=== PATIENT | female | born 2000 | race Caucasian/White ===

== ENCOUNTER 2018-07-08 20:10 | Inpatient (IN) | payer BC ==
[2018-07-08] MEDS ORDERED: Ondansetron 4 MG/2 ML SDV IVPUSH PRN (20:46)
[2018-07-08] MEDS ORDERED: Nalbuphine 20 MG/ML 1 ML Syringe IVPUSH PRN (20:46)
[2018-07-08] MEDS ORDERED: Sodium Chloride 0.9% 10 ML Syringe FLUSH PRN (20:46)
[2018-07-08] MEDS ORDERED: Oxytocin/Lactated Ringers 10 UNIT/1,000 ML BAG IV SCH (21:00)
[2018-07-08] MEDS ORDERED: Lactated Ringers 1,000 ML IV SCH (21:00)
--- NOTE | 2018-07-08 21:57 | PCM.LDHP ---
L&D History of Present Illness - General Date of Service: 07/08/18 Admit Problem/Dx: Patient Status Order with Admit Dx/Problem 07/08/18 20:47 Patient Status [ADT] Routine Admission Diagnosis/Problem Admission Diagnosis/Problem Source of Information: Patient History Limitations: Reports: No Limitations - History of Present Illness Introduction:: Brii Mcallister is a 18 year old female at 39 weeks 5 days (WADE 07/10/2018 ) by LMP consistent with 8 week ultrasound who presents for evaluation of contractions and possible labor. She reports that she has been having contractions since yesterday at around 3 PM and they have been getting progressively worse throughout the day. She reports that the contractions when she came in were about 2-3 minutes apart lasting for about a minute at a time. She states that around 6 or 6:30 PM she had a small gush of clear fluid with some continuous leaking of fluid afterwards. She reports that she is having a small amount of vaginal bleeding. She reports that she is feeling good movement. Timing/Duration: Reports: day(s):, gradual onset, getting worse Location, : Reports: Abdomen, Lower back, Pelvic Quality: Reports: Pressure, Throbbing Severity: Severe Improves with: Reports: None Worsens with: Reports: None Associated Symptoms: Reports: vaginal bleeding, vaginal fluid, mild amount Present Illness Comments:: Brii Mcallister is a 18 year old female at 39 weeks 5 days (EDC 07/10/2018 end (by LMP consistent with 8 week ultrasound. She has had routine care with Dr. Castellon starting at 8 weeks gestational age. This has been overall uncomplicated. labs Blood type: O+ Antibody screen: Negative First trimester hematocrit/hemoglobin: 39.1%/13.8 on 12/27/2017 Platelets: 291 on 12/27/2017 Rubella status: Immune Hepatitis B surface antigen: Negative RPR: Negative HIV: Negative Gonorrhea: Negative Chlamydia: Negative One hour glucose tolerance test: 92 Second trimester hemoglobin: 11.5 on 04/20/2018 Platelets: 289 on 04/20/2018 GBS status: Negative - Related Data Allergies/Adverse Reactions: Allergies Allergy/AdvReac Type Severity Reaction Status Date / Time peppermint Allergy Rash Verified 07/08/18 20:40 Home Medications: Home Meds Vits #93/Iron Fum/FA [ Formula Tablet] 07/08/18 [History] Past Medical History [employer]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: - Past Surgical History Musculoskeletal Surgical History: Reports: Other (See Below) Other Musculoskeletal Surgeries/Procedures:: wrist surgery 2012 Social & Family History - Tobacco Use Smoking Status *Q: Never Smoker - Tobacco Core Measures Tobacco Use/Smoking Within Last 30 Days: No Smokeless Tobacco Use in Last 30 Days: No - Alcohol Use Alcohol Use History: No - Recreational Drug Use Recreational Drug Use: No - Living Situation & Occupation Living situation: Reports: Single, with Significant Other Occupation: Employed H&P Review of Systems - Review of Systems: Review Of Systems: See Below General: Denies: Fever, Chills, Malaise, Weakness HEENT: Denies: Headaches, Sinus Congestion, Sore Throat, Visual Changes Pulmonary: Denies: Shortness of Breath, Wheezing, Cough Cardiovascular: Denies: Chest Pain, Palpitations, Dyspnea on Exertion Gastrointestinal: Denies: Abdominal Pain, Constipation, Diarrhea, Nausea, Vomiting Genitourinary: Denies: Dysuria, Frequency, Burning, Pain, Urgency Musculoskeletal: Reports: Back Pain (and hip pain) Skin: Denies: Rash, Lesions Psychiatric: Denies: Depression, Anxiety Neurological: Denies: Headache L&D Exam - Exam Exam: See Below - Vital Signs Vital Signs: Last Vital Signs Temp 37.3 C 07/08/18 20:33 Pulse 93 07/08/18 20:33 Resp 18 07/08/18 20:33 BP 117/78 07/08/18 20:33 Pulse Ox Weight: 59.285 kg - OB Specific Contraction Duration (sec): 45-75 Contraction Frequency (min): 1-2 Contraction Intensity: Strong Movement: Active Heart Tones: Present Heart Tones per Min: 140 (+15 x 15 accelerations, no decelerations) Heart Rate (FHR) Variability: Moderate (6-25 bmp) Presentation: Vertex Estimated Weight: 6-6.5 lbs by Yasmany - Vela Score Vela Score Cervix Position: Anterior Vela Score Consistency: Soft Vela Score Effacement: >80% (80%) Vela Score Dilation: > 5 cm (7 cm) Vela Score 's Station: -1 ,0 (0) Vela Score Total: 12 - Exam General: Alert, Oriented HEENT: EOMI Neck: Supple, Trachea Midline Lungs: Clear to Auscultation, Normal Respiratory Effort Cardiovascular: Regular Rate, Regular Rhythm GI/Abdominal Exam: Soft, Non-Tender, No Distention, Other (Gravid). No: Guarding, Rigid, Rebound Genitourinary: Normal external exam Back Exam: Normal Inspection Extremities: Normal Inspection, No Pedal Edema Skin: Warm, Dry, Intact Psychiatric: Alert, Normal Affect, Normal Mood - Patient Data Lab Results Last 24 hrs: Laboratory Results - last 24 hr 07/08/18 Range/Units 21:00 WBC 18.70 H (3.98-10.04) K/mm3 RBC 4.19 (3.98-5.22) M/mm3 Hgb 12.3 (11.2-15.7) gm/L Hct 37.4 (34.1-44.9) % MCV 89.3 (79.4-94.8) fl MCH 29.4 (25.6-32.2) pg MCHC 32.9 (32.2-35.5) g/dl RDW Std Deviation 38.8 (36.4-46.3) fL Plt Count 300 (182-369) K/mm3 MPV 10.7 (9.4-12.3) fl Neut % (Auto) 78.5 H (34.0-71.1) % Lymph % (Auto) 10.6 L (19.3-51.7) % [place] % (Auto) 9.6 (4.7-12.5) % Eos % (Auto) 0.4 L (0.7-5.8) Baso % (Auto) 0.2 (0.1-1.2) % Neut # (Auto) 14.66 H (1.56-6.13) K/mm3 Lymph # (Auto) 1.99 (1.18-3.74) K/mm3 [place] # (Auto) 1.80 H (0.24-0.36) K/mm3 Eos # (Auto) 0.08 (0.04-0.36) K/mm3 Baso # (Auto) 0.03 (0.01-0.08) K/mm3 Manual Slide Review Normal smear Result Diagrams: 07/08/18 21:00 - Problem List (1) 39 weeks gestation of SNOMED Code(s): 72100684 ICD Code: Z3A.39 - 39 WEEKS GESTATION OF Status: Acute Current Visit: Yes Problem List Initiated/Reviewed/Updated: Yes Orders Last 24hrs: Active Orders 24 hr Category Date Time Status Patient Status [ADT] Routine ADT 07/08/18 20:47 Active Activity as Tolerated [RC] PFP Care 07/08/18 20:46 Active Communication Order [RC] ASDIRECTED Care 07/08/18 20:46 Active Heart Tones [RC] ASDIRECTED Care 07/08/18 20:47 Active Non Stress Test [RC] PER UNIT ROUTINE Care 07/08/18 20:46 Active Notify Provider [RC] PFP Care 07/08/18 20:46 Active Notify Provider [RC] PRN Care 07/08/18 20:46 Active Peripheral IV Care [RC] . DIRECTED Care 07/08/18 20:47 Active Vital Signs [RC] PER UNIT ROUTINE Care 07/08/18 20:46 Active Regular Diet [DIET] Diet 07/08/18 Breakfast Active RAPID PLASMA REAGIN,RPR [CHEM] Routine Lab 07/08/18 21:00 Received TYPE AND SCREEN [BBK] Stat Lab 07/08/18 21:00 Received Lactated Ringers [Ringers, Lactated] 1,000 ml Med 07/08/18 21:00 Active IV ASDIRECTED Nalbuphine [Nubain] Med 07/08/18 20:46 Active 10 mg IVPUSH Q2H PRN Ondansetron [Zofran] Med 07/08/18 20:46 Active 4 mg IVPUSH Q4H PRN Oxytocin/Lactated Ringers [Pitocin in LR 10 Units/1,000 Med 07/08/18 21:00 Active ML] 10 unit in 1,000 ml IV ASDIRECTED Sodium Chloride 0.9% [Saline Flush] Med 07/08/18 20:46 Active 10 ml FLUSH ASDIRECTED PRN Electronic Heart Tones Ext w TOCO [WOMSER] Oth 07/08/18 20:46 Ordered Routine Electronic Heart Tones Internal [WOMSER] Per Unit Oth 07/08/18 20:46 Ordered Routine Peripheral IV Insertion Adult [OM.PC] Routine Oth 07/08/18 20:46 Ordered Resuscitation Status Routine Resus Stat 07/08/18 20:46 Ordered Medication Orders Lactated Ringer's (Ringers, Lactated) 1,000 mls @ 100 mls/hr IV ASDIRECTED [facility] Oxytocin/Lactated Ringer's (Pitocin In Lr 10 Units/1,000 Ml) 10 unit in 1,000 mls @ 500 mls/hr IV ASDIRECTED MATEO Stop: 07/08/18 22:59 Nalbuphine HCl (Nubain) 10 mg IVPUSH Q2H PRN PRN Reason: pain Ondansetron HCl (Zofran) 4 mg IVPUSH Q4H PRN PRN Reason: Nausea/Vomiting Sodium Chloride (Saline Flush) 10 ml FLUSH ASDIRECTED PRN PRN Reason: Keep Vein Open Assessment/Plan Comment:: Refer to observation for spontaneous labor with cervical dilation of 5 cm on initial exam by nurse. On my exam she was 7 cm dilated and artificial rupture membranes performed with return of clear fluid. Mother and tolerated procedure without complications. Continuous monitoring Continue IV and have Lactated Ringer's at 125 ml/hr May have small amounts of regular diet Activity as tolerated May have epidural as desired Plans to breast-feed after delivery Anticipate vaginal delivery unless otherwise indicated Crescencio Yeung M.D. 10:08 PM 07/08/2018
[2018-07-08] MEDS ORDERED: Lidocaine 1% 50 ML MDV INJECT ONE (22:58)
[2018-07-08] MEDS ORDERED: Lidocaine 1% 50 ML MDV ONE (22:59)
--- NOTE | 2018-07-09 03:17 | PCM.DEL ---
L & D Note - General Info Date of Service: 07/09/18 Mother's Due Date: 07/10/18 - Delivery Note Labor: Spontaneous, Augmented by ARM Cervical Ripening Method: Oxytocin Delivery Outcome: Livebirth Infant Delivery Method: Spontaneous Vaginal Delivery-Single Presentation: Direct Occiput Posterior Nuchal Cord: None Prep: Povidone-Iodine (Betadine Anesthesia Type: Local Anesthetic: Lidocaine (Xylocaine) 1% Plain Local Anesthetic Volume: Other (8 mL) Amniotic Fluid Description: Clear Episiotomy Type: None Laceration: 2nd Degree, Perineal (midline, repaired with 3-0 Vicryl) Suture type: Vicryl Suture size: 3-0 Placenta: Intact, Spontaneous Cord: 3 Vessels Estimated Blood Loss: 350 Resuscitation Needed: No : Bulb Syringe, Stimulated, Warmed, [place] Used Provider: Crescencio Yeung Score 1 min: 8 Score 5 min: 9 Second Stage Interventions: Reports: Pushing Effectively, Pushing, Pulls Own Legs Back Delivery Comments (Free Text/Narrative):: Stage I: Brii Mcallister was admitted for spontaneous labor. On admission her cervix was dilated to 5 cm. She was GBS negative. She progressed to 7 cm and had artificial rupture membranes with clear fluid. She continued to labor on her own and progressed to complete and pushing. Stage II: On 07/09/2018 she had a normal vaginal delivery of a live male infant at 0238. Apgars of 8 & 9. Weight of 3280 g (7 lbs 3.7 oz). Length of 20.5 inches. There was no nuchal cord. Infant was delivered in direct OP position. The cord was doubly clamped and cut by myself. Infant was placed on mother's abdomen and taken to the warmer for evaluation per mother's request. Stage III: She had a spontaneous delivery of an intact placenta in Vaishnavi presentation. Three vessel cord. She was given pitocin and fundal massage. She had a second-degree midline perineal laceration that was repaired in normal fashion using 3-0 Vicryl. Mom and baby were stable to recovery. EBL of 350 mL. Crescencio Yeung MD 3:09 AM 07/09/2018 - General Info Date of Service: 07/09/18 - Patient Data Vitals - Most Recent: Last Vital Signs Temp 37.3 C 07/08/18 20:33 Pulse 93 07/08/18 20:33 Resp 18 07/08/18 20:33 BP 117/78 07/08/18 20:33 Pulse Ox Weight - Most Recent: 59.285 kg Lab Results Last 24 Hours: Laboratory Results - last 24 hr 07/08/18 07/08/18 Range/Units 21:00 21:00 WBC 18.70 H (3.98-10.04) K/mm3 RBC 4.19 (3.98-5.22) M/mm3 Hgb 12.3 (11.2-15.7) gm/L Hct 37.4 (34.1-44.9) % MCV 89.3 (79.4-94.8) fl MCH 29.4 (25.6-32.2) pg MCHC 32.9 (32.2-35.5) g/dl RDW Std Deviation 38.8 (36.4-46.3) fL Plt Count 300 (182-369) K/mm3 MPV 10.7 (9.4-12.3) fl Neut % (Auto) 78.5 H (34.0-71.1) % Lymph % (Auto) 10.6 L (19.3-51.7) % [place] % (Auto) 9.6 (4.7-12.5) % Eos % (Auto) 0.4 L (0.7-5.8) Baso % (Auto) 0.2 (0.1-1.2) % Neut # (Auto) 14.66 H (1.56-6.13) K/mm3 Lymph # (Auto) 1.99 (1.18-3.74) K/mm3 [place] # (Auto) 1.80 H (0.24-0.36) K/mm3 Eos # (Auto) 0.08 (0.04-0.36) K/mm3 Baso # (Auto) 0.03 (0.01-0.08) K/mm3 Manual Slide Review Normal smear Blood Type O POSITIVE Gel Antibody Screen Negative Med Orders - Current: Current Medications Lactated Ringer's (Ringers, Lactated) 1,000 mls @ 100 mls/hr IV ASDIRECTED MATEO Nalbuphine HCl (Nubain) 10 mg IVPUSH Q2H PRN PRN Reason: pain Ondansetron HCl (Zofran) 4 mg IVPUSH Q4H PRN PRN Reason: Nausea/Vomiting Sodium Chloride (Saline Flush) 10 ml FLUSH ASDIRECTED PRN PRN Reason: Keep Vein Open Discontinued Medications Oxytocin/Lactated Ringer's (Pitocin In Lr 10 Units/1,000 Ml) 10 unit in 1,000 mls @ 500 mls/hr IV ASDIRECTED MATEO Stop: 07/08/18 22:59 Last Admin: 07/09/18 02:41 Dose: 500 mls/hr Lidocaine HCl (Xylocaine 1%) 10 ml INJECT ONETIME ONE Stop: 07/08/18 22:59 Last Admin: 07/09/18 02:54 Dose: 10 ml Lidocaine HCl (Xylocaine 1%) Confirm Administered Dose 50 ml .ROUTE .STK-MED ONE Stop: 07/08/18 23:00 Last Admin: 07/08/18 23:17 Dose: Not Given - Problem List & Annotations (1) 39 weeks gestation of SNOMED Code(s): 13724268 Code(s): Z3A.39 - 39 WEEKS GESTATION OF Status: Acute Current Visit: Yes (2) Vaginal delivery SNOMED Code(s): 104249019 Code(s): O80 - ENCOUNTER FOR FULL-TERM UNCOMPLICATED DELIVERY Status: Acute Current Visit: Yes (3) Second degree perineal laceration during delivery SNOMED Code(s): 0934967 Code(s): O70.1 - SECOND DEGREE PERINEAL LACERATION DURING DELIVERY Status: Acute Current Visit: Yes - Problem List Review Problem List Initiated/Reviewed/Updated: Yes - My Orders Last 24 Hours: My Active Orders 07/08/18 20:46 Activity as Tolerated [RC] PFP Communication Order [RC] ASDIRECTED Non Stress Test [RC] PER UNIT ROUTINE Notify Provider [RC] PFP Notify Provider [RC] PRN Vital Signs [RC] PER UNIT ROUTINE Nalbuphine [Nubain] 10 mg IVPUSH Q2H PRN Ondansetron [Zofran] 4 mg IVPUSH Q4H PRN Sodium Chloride 0.9% [Saline Flush] 10 ml FLUSH ASDIRECTED PRN Electronic Heart Tones Ext w TOCO [WOMSER] Routine Electronic Heart Tones Internal [WOMSER] Per Unit Routine Peripheral IV Insertion Adult [OM.PC] Routine Resuscitation Status Routine 07/08/18 20:47 Patient Status [ADT] Routine Heart Tones [RC] ASDIRECTED Peripheral IV Care [RC] . DIRECTED 07/08/18 21:00 RAPID PLASMA REAGIN,RPR [CHEM] Routine Lactated Ringers [Ringers, Lactated] 1,000 ml IV ASDIRECTED 07/08/18 22:17 PATIENT RETYPE [BBK] Routine 07/08/18 Breakfast Regular Diet [DIET] 07/09/18 03:10 Patient Status Manage Transfer [TRANSFER] Routine - Plan Plan:: Admit to inpatient following normal spontaneous vaginal delivery Continue Pitocin per unit protocol following delivery of placenta and lactated Ringer's until tolerating regular diet Regular diet Vitals per unit routine Ibuprofen and Tylenol for pain control Assist with breast-feeding as needed Continue to monitor lochia Anticipate discharge home on day #1 or #2 depending on status Crescencio Yeung MD 3:09 AM 07/09/2018
[2018-07-09] MEDS ORDERED: Lanolin 100% Cream 7 GM Tube TOP PRN (03:19)
[2018-07-09] MEDS ORDERED: Witch Hazel Medicated Pads 40/Jar TOP PRN (03:19)
[2018-07-09] MEDS ORDERED: Oxytocin/Lactated Ringers 10 UNIT/1,000 ML BAG IV SCH (03:19)
[2018-07-09] MEDS ORDERED: Docusate Sodium 100 MG Cap PO PRN (03:19)
[2018-07-09] MEDS ORDERED: Benzocaine/Menthol 20%-0.5% Spray 56 GM Canister TOP PRN (03:19)
[2018-07-09] MEDS ORDERED: Ibuprofen 600 MG Tab PO PRN (03:19)
[2018-07-09] MEDS ORDERED: Acetaminophen 325 MG Tab PO PRN (03:19)
[2018-07-09] MEDS ORDERED: Hydrocortisone Acetate 25 MG Supp RECTAL PRN (03:19)
[2018-07-09] MEDS: Prenatal Multivitamin with Calcium/Folic Acid/Iron Tab PO SCH (11:35)
--- NOTE | 2018-07-10 08:57 | PCM.SN ---
- Free Text/Narrative Note: Post Progress Note PPD # 1 Subjective: Doing well overall. Ambulating without difficulty. Lochia minimal. Voiding without difficulty. Tolerating regular diet without nausea or vomiting. Pain minimal and able to be controlled with oral medications. Breast-feeding with some difficulty but working with the nurses on feeding baby. Objective: Vitals: Vital Signs - 24 hr 07/09/18 07/09/18 13:49 21:43 Temperature 36.4 C 36.6 C Pulse, 103 H 104 H Peripheral Respiratory 14 15 Rate Blood Pressure 117/61 99/59 L O2 Sat by Pulse 98 98 Oximetry Physical Exam General: Alert and oriented, no acute distress Lungs: Clear to auscultation bilaterally Heart: Regular rate and rhythm Abdomen: Soft, minimal appropriate tenderness, non-distended, fundus midline, nontender, and at the umbilicus Extremities: No edema ASSESSMENT: 18-year-old female s/p normal vaginal delivery PPD #1 PLAN: Doing well Breast-feeding with minimal difficulty. Assist as needed Lochia minimal. Continue to monitor for appropriate lochia. Continue routine care Anticipate discharge home today Crescencio Yeung MD 8:56 AM 07/10/2018
--- NOTE | 2018-07-10 09:00 | PCM.DCSUM1 ---
Discharge Summary - Hospital Course Free Text/Narrative:: - Delivery Note Labor: Spontaneous, Augmented by ARM Cervical Ripening Method: Oxytocin Delivery Outcome: Livebirth Delivery Method: Spontaneous Vaginal Delivery-Single Presentation: Direct Occiput Posterior Nuchal Cord: None Prep: Povidone-Iodine (Betadine Anesthesia Type: Local Anesthetic: Lidocaine (Xylocaine) 1% Plain Local Anesthetic Volume: Other (8 mL) Amniotic Fluid Description: Clear Episiotomy Type: None Laceration: 2nd Degree, Perineal (midline, repaired with 3-0 Vicryl) Suture type: Vicryl Suture size: 3-0 Placenta: Intact, Spontaneous Cord: 3 Vessels Estimated Blood Loss: 350 Resuscitation Needed: No : Bulb Syringe, Stimulated, Warmed, [place] Used Provider: Crescencio Yeung Score 1 min: 8 Score 5 min: 9 Second Stage Interventions: Reports: Pushing Effectively, Pushing, Pulls Own Legs Back Delivery Comments (Free Text/Narrative):: Stage I: Brii Mcallister was admitted for spontaneous labor. On admission her cervix was dilated to 5 cm. She was GBS negative. She progressed to 7 cm and had artificial rupture membranes with clear fluid. She continued to labor on her own and progressed to complete and pushing. Stage II: On 07/09/2018 she had a normal vaginal delivery of a live male at 0238. Apgars of 8 & 9. Weight of 3280 g (7 lbs 3.7 oz). Length of 20.5 inches. There was no nuchal cord. Infant was delivered in direct OP position. The cord was doubly clamped and cut by myself. Infant was placed on mother's abdomen and taken to the warmer for evaluation per mother's request. Stage III: She had a spontaneous delivery of an intact placenta in Vaishnavi presentation. Three vessel cord. She was given pitocin and fundal massage. She had a second-degree midline perineal laceration that was repaired in normal fashion using 3-0 Vicryl. Mom and baby were stable to recovery. EBL of 350 mL. HPI Initial Comments: - Delivery Note Labor: Spontaneous, Augmented by ARM Cervical Ripening Method: Oxytocin Delivery Outcome: Livebirth Delivery Method: Spontaneous Vaginal Delivery-Single Presentation: Direct Occiput Posterior Nuchal Cord: None Prep: Povidone-Iodine (Betadine Anesthesia Type: Local Anesthetic: Lidocaine (Xylocaine) 1% Plain Local Anesthetic Volume: Other (8 mL) Amniotic Fluid Description: Clear Episiotomy Type: None Laceration: 2nd Degree, Perineal (midline, repaired with 3-0 Vicryl) Suture type: Vicryl Suture size: 3-0 Placenta: Intact, Spontaneous Cord: 3 Vessels Estimated Blood Loss: 350 Resuscitation Needed: No [place]: Bulb Syringe, Stimulated, Warmed, [place] Used Provider: Crescencio Yeung Score 1 min: 8 Score 5 min: 9 Second Stage Interventions: Reports: Pushing Effectively, Pushing, Pulls Own Legs Back Delivery Comments (Free Text/Narrative):: Stage I: Brii Mcallister was admitted for spontaneous labor. On admission her cervix was dilated to 5 cm. She was GBS negative. She progressed to 7 cm and had artificial rupture membranes with clear fluid. She continued to labor on her own and progressed to complete and pushing. Stage II: On 07/09/2018 she had a normal vaginal delivery of a live male infant at 0238. Apgars of 8 & 9. Weight of 3280 g (7 lbs 3.7 oz). Length of 20.5 inches. There was no nuchal cord. was delivered in direct OP position. The cord was doubly clamped and cut by myself. Infant was placed on mother's abdomen and taken to the warmer for evaluation per mother's request. Stage III: She had a spontaneous delivery of an intact placenta in Vaishnavi presentation. Three vessel cord. She was given pitocin and fundal massage. She had a second-degree midline perineal laceration that was repaired in normal fashion using 3-0 Vicryl. Mom and baby were stable to recovery. EBL of 350 mL. Brief History: - Delivery Note. Labor: Spontaneous, Augmented by ARM. Cervical Ripening Method: Oxytocin. Delivery Outcome: Livebirth. Infant Delivery Method: Spontaneous Vaginal Delivery-Single. Presentation: Direct Occiput Posterior. Nuchal Cord: None. Prep: Povidone-Iodine (Betadine. Anesthesia Type: Local. Anesthetic: Lidocaine (Xylocaine) 1% Plain. Local Anesthetic Volume: Other (8 mL). Amniotic Fluid Description: Clear. Episiotomy Type: None. Laceration: 2nd Degree, Perineal (midline, repaired with 3-0 Vicryl). Suture type: Vicryl. Suture size: 3-0. Placenta: Intact, Spontaneous. Cord: 3 Vessels. Estimated Blood Loss: 350. Resuscitation Needed : No. [place]: Bulb Syringe, Stimulated, Warmed, [place] Used. Provider: Crescencio Yeung. Score 1 min: 8. Score 5 min: 9. Second Stage Interventions: Reports: Pushing Effectively, Pushing, Pulls Own Legs Back. Delivery Comments (Free Text/Narrative):: Stage I: Brii Mcallister was admitted for spontaneous labor. On admission her cervix was dilated to 5 cm. She was GBS negative. She progressed to 7 cm and had artificial rupture membranes with clear fluid. She continued to labor on her own and progressed to complete and pushing. Stage II: On 07/09/2018 she had a normal vaginal delivery of a live male infant at 0238. Apgars of 8 & 9. Weight of 3280 g (7 lbs 3.7 oz). Length of 20.5 inches. There was no nuchal cord. Infant was delivered in direct OP position. The cord was doubly clamped and cut by myself. was placed on mother's abdomen and taken to the warmer for evaluation per mother's request. Stage III: She had a spontaneous delivery of an intact placenta in Vaishnavi presentation. Three vessel cord. She was given pitocin and fundal massage. She had a second-degree midline perineal laceration that was repaired in normal fashion using 3-0 Vicryl. Mom and baby were stable to recovery. EBL of 350 mL. - Discharge Data Discharge Disposition: Home, Self-Care 01 Condition: Good - Discharge Diagnosis/Problem(s) (1) 39 weeks gestation of SNOMED Code(s): 31235306 ICD Code: Z3A.39 - 39 WEEKS GESTATION OF Status: Acute Current Visit: Yes (2) Vaginal delivery SNOMED Code(s): 875187589 ICD Code: O80 - ENCOUNTER FOR FULL-TERM UNCOMPLICATED DELIVERY Status: Acute Current Visit: Yes (3) Second degree perineal laceration during delivery SNOMED Code(s): 1191187 ICD Code: O70.1 - SECOND DEGREE PERINEAL LACERATION DURING DELIVERY Status : Acute Current Visit: Yes - Discharge Plan Home Medications: Home Meds Vits #93/Iron Fum/FA [ Formula Tablet] 05/24/19 [History] - Patient Data Vitals - Most Recent: Last Vital Signs Temp 36.6 C 07/09/18 21:43 Pulse 104 H 07/09/18 21:43 Resp 15 07/09/18 21:43 BP 99/59 L 07/09/18 21:43 Pulse Ox 98 07/09/18 21:43 Weight - Most Recent: 59.285 kg I&O - Last 24 hours: Intake & Output 07/09/18 07/10/18 07/10/18 22:59 06:59 14:59 Intake Total 320 Balance 320 Lab Results - Last 24 hrs: Laboratory Results - last 24 hr 07/09/18 07/09/18 Range/Units 09:50 09:50 WBC 31.32 H (3.98-10.04) K/mm3 RBC 3.60 L (3.98-5.22) M/mm3 Hgb 10.8 L D (11.2-15.7) gm/L Hct 31.6 L (34.1-44.9) % MCV 87.8 (79.4-94.8) fl MCH 30.0 (25.6-32.2) pg MCHC 34.2 (32.2-35.5) g/dl RDW Std Deviation 37.7 (36.4-46.3) fL Plt Count 344 (182-369) K/mm3 MPV 10.5 (9.4-12.3) fl Neut % (Auto) Cancelled Lymph % (Auto) Cancelled [place] % (Auto) Cancelled Eos % (Auto) Cancelled Baso % (Auto) Cancelled Neut # (Auto) Cancelled Lymph # (Auto) Cancelled [place] # (Auto) Cancelled Eos # (Auto) Cancelled Baso # (Auto) Cancelled Neutrophils % (Manual) 87 H (40-60) % Band Neutrophils % 0 (0-10) % Lymphocytes % (Manual) 3 L (20-40) % Atypical Lymphs % 0 % Monocytes % (Manual) 10 (2-10) % Eosinophils % (Manual) 0 L (0.7-5.8) % Basophils % (Manual) 0 L (0.1-1.2) Manual Slide Review Cancelled Platelet Estimate Adequate Hypochromasia 1+ slight Microcytosis 1+ slight RBC Morph Comment Abnormal Sodium 133 L (136-145) mEq/L Potassium 3.6 (3.5-5.1) mEq/L Chloride 101 (98-107) mEq/L Carbon Dioxide 17 L (21-32) mEq/L Anion Gap 18.6 H (5-15) BUN 5 L (7-18) mg/dL Creatinine 0.9 (0.55-1.02) mg/dL Est Cr Clr Drug Dosing 86.10 mL/min Estimated GFR (MDRD) > 60 (>60) mL/min BUN/Creatinine Ratio 5.6 L (14-18) Glucose 133 H (74-106) mg/dL Calcium 8.9 (8.5-10.1) mg/dL Med Orders - Current: Current Medications Acetaminophen (Tylenol) 650 mg PO Q6H PRN PRN Reason: mild pain or fever Benzocaine/Menthol (Dermoplast Pain Relief [place]) 0 gm TOP ASDIRECTED PRN PRN Reason: Perineal Comfort Measure Last Admin: 07/09/18 04:13 Dose: 1 applic Docusate Sodium (Colace) 100 mg PO BID PRN PRN Reason: Constipation Emollient Ointment (Lansinoh Hpa) 0 gm TOP ASDIRECTED PRN PRN Reason: Sore Nipples Hydrocortisone Acetate (Anucort-Hc) 25 mg RECTAL BID PRN PRN Reason: Hemorrhoid pain Oxytocin/Lactated Ringer's (Pitocin In Lr 10 Units/1,000 Ml) 10 unit in 1,000 mls @ 100 mls/hr IV TITRATE MATEO; Protocol Ibuprofen (Motrin) 600 mg PO Q6H PRN PRN Reason: Mild pain or fever Last Admin: 07/09/18 04:15 Dose: 600 mg Prenat Multivit/Industrial Gas Fitter Helper/Iron/Folic Ac ( Plus Iron) 1 each PO DAILY MATEO Last Admin: 07/09/18 11:35 Dose: 1 each [place] (Tucks) 1 pad TOP ASDIRECTED PRN PRN Reason: Perineal Comfort Measure Last Admin: 07/09/18 04:14 Dose: 1 applic Discontinued Medications Lactated Ringer's (Ringers, Lactated) 1,000 mls @ 100 mls/hr IV ASDIRECTED MATEO Oxytocin/Lactated Ringer's (Pitocin In Lr 10 Units/1,000 Ml) 10 unit in 1,000 mls @ 500 mls/hr IV ASDIRECTED MATEO Stop: 07/08/18 22:59 Last Admin: 07/09/18 02:41 Dose: 500 mls/hr Lidocaine HCl (Xylocaine 1%) 10 ml INJECT ONETIME ONE Stop: 07/08/18 22:59 Last Admin: 07/09/18 02:54 Dose: 10 ml Lidocaine HCl (Xylocaine 1%) Confirm Administered Dose 50 ml .ROUTE .RUST-MED ONE Stop: 07/08/18 23:00 Last Admin: 07/08/18 23:17 Dose: Not Given Nalbuphine HCl (Nubain) 10 mg IVPUSH Q2H PRN PRN Reason: pain Ondansetron HCl (Zofran) 4 mg IVPUSH Q4H PRN PRN Reason: Nausea/Vomiting Sodium Chloride (Saline Flush) 10 ml FLUSH ASDIRECTED PRN PRN Reason: Keep Vein Open
--- NOTE | 2018-07-10 09:05 | PCM.DCSUM1 ---
Discharge Summary - Hospital Course Free Text/Narrative:: - Delivery Note Labor: Spontaneous, Augmented by ARM Cervical Ripening Method: Oxytocin Delivery Outcome: Livebirth Delivery Method: Spontaneous Vaginal Delivery-Single Presentation: Direct Occiput Posterior Nuchal Cord: None Prep: Povidone-Iodine (Betadine Anesthesia Type: Local Anesthetic: Lidocaine (Xylocaine) 1% Plain Local Anesthetic Volume: Other (8 mL) Amniotic Fluid Description: Clear Episiotomy Type: None Laceration: 2nd Degree, Perineal (midline, repaired with 3-0 Vicryl) Suture type: Vicryl Suture size: 3-0 Placenta: Intact, Spontaneous Cord: 3 Vessels Estimated Blood Loss: 350 Resuscitation Needed: No : Bulb Syringe, Stimulated, Warmed, [place] Used Provider: Crescencio Yeung Score 1 min: 8 Score 5 min: 9 Second Stage Interventions: Reports: Pushing Effectively, Pushing, Pulls Own Legs Back Delivery Comments (Free Text/Narrative):: Stage I: Brii Mcallister was admitted for spontaneous labor. On admission her cervix was dilated to 5 cm. She was GBS negative. She progressed to 7 cm and had artificial rupture membranes with clear fluid. She continued to labor on her own and progressed to complete and pushing. Stage II: On 07/09/2018 she had a normal vaginal delivery of a live male at 0238. Apgars of 8 & 9. Weight of 3280 g (7 lbs 3.7 oz). Length of 20.5 inches. There was no nuchal cord. Infant was delivered in direct OP position. The cord was doubly clamped and cut by myself. Infant was placed on mother's abdomen and taken to the warmer for evaluation per mother's request. Stage III: She had a spontaneous delivery of an intact placenta in Vaishnavi presentation. Three vessel cord. She was given pitocin and fundal massage. She had a second-degree midline perineal laceration that was repaired in normal fashion using 3-0 Vicryl. Mom and baby were stable to recovery. EBL of 350 mL. HPI Initial Comments: - Delivery Note Labor: Spontaneous, Augmented by ARM Cervical Ripening Method: Oxytocin Delivery Outcome: Livebirth Delivery Method: Spontaneous Vaginal Delivery-Single Presentation: Direct Occiput Posterior Nuchal Cord: None Prep: Povidone-Iodine (Betadine Anesthesia Type: Local Anesthetic: Lidocaine (Xylocaine) 1% Plain Local Anesthetic Volume: Other (8 mL) Amniotic Fluid Description: Clear Episiotomy Type: None Laceration: 2nd Degree, Perineal (midline, repaired with 3-0 Vicryl) Suture type: Vicryl Suture size: 3-0 Placenta: Intact, Spontaneous Cord: 3 Vessels Estimated Blood Loss: 350 Resuscitation Needed: No [place]: Bulb Syringe, Stimulated, Warmed, [place] Used Provider: Crescencio Yeung Score 1 min: 8 Score 5 min: 9 Second Stage Interventions: Reports: Pushing Effectively, Pushing, Pulls Own Legs Back Delivery Comments (Free Text/Narrative):: Stage I: Brii Mcallister was admitted for spontaneous labor. On admission her cervix was dilated to 5 cm. She was GBS negative. She progressed to 7 cm and had artificial rupture membranes with clear fluid. She continued to labor on her own and progressed to complete and pushing. Stage II: On 07/09/2018 she had a normal vaginal delivery of a live male infant at 0238. Apgars of 8 & 9. Weight of 3280 g (7 lbs 3.7 oz). Length of 20.5 inches. There was no nuchal cord. was delivered in direct OP position. The cord was doubly clamped and cut by myself. Infant was placed on mother's abdomen and taken to the warmer for evaluation per mother's request. Stage III: She had a spontaneous delivery of an intact placenta in Vaishnavi presentation. Three vessel cord. She was given pitocin and fundal massage. She had a second-degree midline perineal laceration that was repaired in normal fashion using 3-0 Vicryl. Mom and baby were stable to recovery. EBL of 350 mL. Brief History: - Delivery Note. Labor: Spontaneous, Augmented by ARM. Cervical Ripening Method: Oxytocin. Delivery Outcome: Livebirth. Infant Delivery Method: Spontaneous Vaginal Delivery-Single. Presentation: Direct Occiput Posterior. Nuchal Cord: None. Prep: Povidone-Iodine (Betadine. Anesthesia Type: Local. Anesthetic: Lidocaine (Xylocaine) 1% Plain. Local Anesthetic Volume: Other (8 mL). Amniotic Fluid Description: Clear. Episiotomy Type: None. Laceration: 2nd Degree, Perineal (midline, repaired with 3-0 Vicryl). Suture type: Vicryl. Suture size: 3-0. Placenta: Intact, Spontaneous. Cord: 3 Vessels. Estimated Blood Loss: 350. Resuscitation Needed : No. [place]: Bulb Syringe, Stimulated, Warmed, [place] Used. Provider: Crescencio Yeung. Score 1 min: 8. Score 5 min: 9. Second Stage Interventions: Reports: Pushing Effectively, Pushing, Pulls Own Legs Back. Delivery Comments (Free Text/Narrative):: Stage I: Brii Mcallister was admitted for spontaneous labor. On admission her cervix was dilated to 5 cm. She was GBS negative. She progressed to 7 cm and had artificial rupture membranes with clear fluid. She continued to labor on her own and progressed to complete and pushing. Stage II: On 07/09/2018 she had a normal vaginal delivery of a live male infant at 0238. Apgars of 8 & 9. Weight of 3280 g (7 lbs 3.7 oz). Length of 20.5 inches. There was no nuchal cord. Infant was delivered in direct OP position. The cord was doubly clamped and cut by myself. was placed on mother's abdomen and taken to the warmer for evaluation per mother's request. Stage III: She had a spontaneous delivery of an intact placenta in Vaishnavi presentation. Three vessel cord. She was given pitocin and fundal massage. She had a second-degree midline perineal laceration that was repaired in normal fashion using 3-0 Vicryl. Mom and baby were stable to recovery. EBL of 350 mL. Diagnosis: Stroke: No - Discharge Data Discharge Date: 07/10/18 Discharge Disposition: Home, Self-Care 01 Condition: Good - Discharge Diagnosis/Problem(s) (1) 39 weeks gestation of SNOMED Code(s): 84314247 ICD Code: Z3A.39 - 39 WEEKS GESTATION OF Status: Acute Current Visit: Yes (2) Vaginal delivery SNOMED Code(s): 585349623 ICD Code: O80 - ENCOUNTER FOR FULL-TERM UNCOMPLICATED DELIVERY Status: Acute Current Visit: Yes (3) Second degree perineal laceration during delivery SNOMED Code(s): 1146612 ICD Code: O70.1 - SECOND DEGREE PERINEAL LACERATION DURING DELIVERY Status : Acute Current Visit: Yes - Patient Summary/Data Complications: None Consults: None Hospital Course: Brii Mcallister was admitted for spontaneous labor. On admission her cervix was dilated to 5 cm. She was GBS negative. She had artificial rupture of membranes with clear fluid. She progressed to complete and began pushing. On she had a normal vaginal delivery of a live male at 0238. Apgars of 8 and 9. Weight of 3280 g (7 pounds 3.7 ounces). Her course was uneventful. Her pain was well controlled and she had minimal lochia. She was ambulating, tolerating a regular diet and voiding normally. She was breast-feeding with some difficulty but was working with the nurses on feeding . She was afebrile and her hematocrit was 31.6 on day #0 approximately 6 hours after delivery. She desired to be discharged home on the morning of PPD #1. Her blood type is O+. - Patient Instructions Diet: Regular Diet as Tolerated Activity: Apply Ice, As Tolerated Activity, Other: Nothing in the vagina for 6 weeks Driving: May Drive Today Showering/Bathing: May Shower Notify Provider of: Fever, Increased Pain, Swelling and Redness, Drainage, Nausea and/or Vomiting Other/Special Instructions: Please contact your physician's office if you have heavy vaginal bleeding enough to soak a pad in less than an hour for several hours. Monitor for any signs of an infection in the breasts with severe pain or redness of the breast. - Discharge Plan *PRESCRIPTION DRUG MONITORING PROGRAM REVIEWED*: Not Applicable *COPY OF PRESCRIPTION DRUG MONITORING REPORT IN PATIENT ALBERTO: Not Applicable Home Medications: Home Meds Vits #93/Iron Fum/FA [ Formula Tablet] 07/08/18 [History] Acetaminophen [Tylenol] 650 mg PO Q6H PRN tablet 07/10/18 [Rx] Benzocaine/Menthol [Dermoplast Pain Relief [place]] 1 spray TOP ASDIRECTED PRN canister 07/10/18 [Rx] Docusate Sodium [Colace] 100 mg PO BID PRN cap 07/10/18 [Rx] Hydrocortisone Acetate [Anucort-HC] 25 mg RECTAL BID PRN supp 07/10/18 [Rx] Ibuprofen [Motrin] 600 mg PO Q6H PRN tablet 07/10/18 [Rx] Lanolin [Lansinoh HPA] 1 applic TOP ASDIRECTED PRN tube 07/10/18 [Rx] [place] [Tucks] 1 pad TOP ASDIRECTED PRN pad 07/10/18 [Rx] Patient Handouts: Vaginal Delivery, Care After, Care of a Perineal Tear Referrals: Carmen Castellon MD [Physician] - (Follow-up in 3-6 weeks for routine visit or earlier as needed.) - Discharge Summary/Plan Comment DC Time >30 min.: No - Patient Data Vitals - Most Recent: Last Vital Signs Temp 36.6 C 07/09/18 21:43 Pulse 104 H 07/09/18 21:43 Resp 15 07/09/18 21:43 BP 99/59 L 07/09/18 21:43 Pulse Ox 98 07/09/18 21:43 Weight - Most Recent: 59.285 kg I&O - Last 24 hours: Intake & Output 07/09/18 07/10/18 07/10/18 22:59 06:59 14:59 Intake Total 320 Balance 320 Lab Results - Last 24 hrs: Laboratory Results - last 24 hr 07/09/18 07/09/18 Range/Units 09:50 09:50 WBC 31.32 H (3.98-10.04) K/mm3 RBC 3.60 L (3.98-5.22) M/mm3 Hgb 10.8 L D (11.2-15.7) gm/L Hct 31.6 L (34.1-44.9) % MCV 87.8 (79.4-94.8) fl MCH 30.0 (25.6-32.2) pg MCHC 34.2 (32.2-35.5) g/dl RDW Std Deviation 37.7 (36.4-46.3) fL Plt Count 344 (182-369) K/mm3 MPV 10.5 (9.4-12.3) fl Neut % (Auto) Cancelled Lymph % (Auto) Cancelled [place] % (Auto) Cancelled Eos % (Auto) Cancelled Baso % (Auto) Cancelled Neut # (Auto) Cancelled Lymph # (Auto) Cancelled [place] # (Auto) Cancelled Eos # (Auto) Cancelled Baso # (Auto) Cancelled Neutrophils % (Manual) 87 H (40-60) % Band Neutrophils % 0 (0-10) % Lymphocytes % (Manual) 3 L (20-40) % Atypical Lymphs % 0 % Monocytes % (Manual) 10 (2-10) % Eosinophils % (Manual) 0 L (0.7-5.8) % Basophils % (Manual) 0 L (0.1-1.2) Manual Slide Review Cancelled Platelet Estimate Adequate Hypochromasia 1+ slight Microcytosis 1+ slight RBC Morph Comment Abnormal Sodium 133 L (136-145) mEq/L Potassium 3.6 (3.5-5.1) mEq/L Chloride 101 (98-107) mEq/L Carbon Dioxide 17 L (21-32) mEq/L Anion Gap 18.6 H (5-15) BUN 5 L (7-18) mg/dL Creatinine 0.9 (0.55-1.02) mg/dL Est Cr Clr Drug Dosing 86.10 mL/min Estimated GFR (MDRD) > 60 (>60) mL/min BUN/Creatinine Ratio 5.6 L (14-18) Glucose 133 H (74-106) mg/dL Calcium 8.9 (8.5-10.1) mg/dL Med Orders - Current: Current Medications Acetaminophen (Tylenol) 650 mg PO Q6H PRN PRN Reason: mild pain or fever Benzocaine/Menthol (Dermoplast Pain Relief [place]) 0 gm TOP ASDIRECTED PRN PRN Reason: Perineal Comfort Measure Last Admin: 07/09/18 04:13 Dose: 1 applic Docusate Sodium (Colace) 100 mg PO BID PRN PRN Reason: Constipation Emollient Ointment (Lansinoh Hpa) 0 gm TOP ASDIRECTED PRN PRN Reason: Sore Nipples Hydrocortisone Acetate (Anucort-Hc) 25 mg RECTAL BID PRN PRN Reason: Hemorrhoid pain Oxytocin/Lactated Ringer's (Pitocin In Lr 10 Units/1,000 Ml) 10 unit in 1,000 mls @ 100 mls/hr IV TITRATE MATEO; Protocol Ibuprofen (Motrin) 600 mg PO Q6H PRN PRN Reason: Mild pain or fever Last Admin: 07/09/18 04:15 Dose: 600 mg Prenat Multivit/Compliance Manager/Iron/Folic Ac ( Plus Iron) 1 each PO DAILY MATEO Last Admin: 07/09/18 11:35 Dose: 1 each [place] (Tucks) 1 pad TOP ASDIRECTED PRN PRN Reason: Perineal Comfort Measure Last Admin: 07/09/18 04:14 Dose: 1 applic Discontinued Medications Lactated Ringer's (Ringers, Lactated) 1,000 mls @ 100 mls/hr IV ASDIRECTED MATEO Oxytocin/Lactated Ringer's (Pitocin In Lr 10 Units/1,000 Ml) 10 unit in 1,000 mls @ 500 mls/hr IV ASDIRECTED MATEO Stop: 07/08/18 22:59 Last Admin: 07/09/18 02:41 Dose: 500 mls/hr Lidocaine HCl (Xylocaine 1%) 10 ml INJECT ONETIME ONE Stop: 07/08/18 22:59 Last Admin: 07/09/18 02:54 Dose: 10 ml Lidocaine HCl (Xylocaine 1%) Confirm Administered Dose 50 ml .ROUTE .STK-MED ONE Stop: 07/08/18 23:00 Last Admin: 07/08/18 23:17 Dose: Not Given Nalbuphine HCl (Nubain) 10 mg IVPUSH Q2H PRN PRN Reason: pain Ondansetron HCl (Zofran) 4 mg IVPUSH Q4H PRN PRN Reason: Nausea/Vomiting Sodium Chloride (Saline Flush) 10 ml FLUSH ASDIRECTED PRN PRN Reason: Keep Vein Open
[2018-07-10] MEDS: Prenatal Multivitamin with Calcium/Folic Acid/Iron Tab PO SCH (13:13)
== END 2018-07-10 12:40 | disposition home or self-care (01) | DRG 560 ==
LOC: JD.OBCHECK 20:10 → JD.OB 20:12 → JD.OBCHECK 21:56 → JD.OB 21:56 → OBSVTOIN 07-09 02:38 → JD.OB 07-09 02:39
PROVIDERS: ADMIT Obstetrics & Gynecology; ATTEND Obstetrics & Gynecology
PROC: 10E0XZZ Delivery of Products of Conception, External Approach (ICD-10-PCS; principal; 2018-07-09)
PROC: 10907ZC Drainage of Amniotic Fluid, Therapeutic from Products of Conception, Via Natural or Artificial Opening (ICD-10-PCS; 2018-07-09)
PROC: 0KQM0ZZ Repair Perineum Muscle, Open Approach (ICD-10-PCS; 2018-07-09)
DX: O70.1 Second degree perineal laceration during delivery (principal); Z3A.39 39 weeks gestation of pregnancy; Z37.0 Single live birth; Z91.02 Food additives allergy status
CPT/HCPCS: 36415; 59025; 59409; 80048; 85007; 85025; 85027; 86592; 86850; 86900; 86901; A9270-GY; J2001; J2590

== ENCOUNTER 2018-08-06 18:24 | Emergency (ER) | payer BC ==
[2018-08-06] MEDS ORDERED: HYDROmorphone 0.5 MG/0.5 ML Syringe IM ONE (20:10)
--- NOTE | 2018-08-06 20:17 | EDM.PDOC ---
ED HPI GENERAL MEDICAL PROBLEM - General Chief Complaint: Genitourinary Problem Stated Complaint: VAGINAL STITCHES PAIN Time Seen by Provider: 08/06/18 19:22 Source of Information: Reports: Patient, RN Notes Reviewed History Limitations: Reports: No Limitations - History of Present Illness INITIAL COMMENTS - FREE TEXT/NARRATIVE: Patient is a 18-year-old female who presents to the ED for the evaluation of vaginal pain. The patient notes she had a vaginal delivery on July 09 that required an episiotomy. She did have absorbable stitches placed. The patient notes that roughly 1 week ago she started having some burning vaginal pain, and feels that her vaginal area looks swollen. The patient notes that she has some dysuria, however when she applies Aquaphor as a barrier she does not have any burning with urination. The patient notes some briseno colored discharge. The patient denies any vaginal itching. The patient notes she has not had sexual intercourse since the . She does have an appointment with Dr. Castellon on Wednesday, but is having increased pain and didn't think she could wait until Wednesday. The patient denies any fevers/chills, nausea, vomiting. The patient is breast feeding at this time. She would rate her pain at an 8 out of 10 today. Vaginal Pain Score (Numeric/FACES): 8 - Related Data Allergies Allergy/AdvReac Type Severity Reaction Status Date / Time peppermint Allergy Rash Verified 08/06/18 20:19 Home Meds: Home Meds Vits #93/Iron Fum/FA [ Formula Tablet] 07/08/18 [History] Acetaminophen [Tylenol] 650 mg PO Q6H PRN tablet 07/10/18 [Rx] Benzocaine/Menthol [Dermoplast Pain Relief [place]] 1 spray TOP ASDIRECTED PRN canister 07/10/18 [Rx] Docusate Sodium [Colace] 100 mg PO BID PRN cap 07/10/18 [Rx] Hydrocortisone Acetate [Anucort-HC] 25 mg RECTAL BID PRN supp 07/10/18 [Rx] Ibuprofen [Motrin] 600 mg PO Q6H PRN tablet 07/10/18 [Rx] Lanolin [Lansinoh HPA] 1 applic TOP ASDIRECTED PRN tube 07/10/18 [Rx] Witch Bryanna [Tucks] 1 pad TOP ASDIRECTED PRN pad 07/10/18 [Rx] cephALEXin [Keflex] 500 mg PO QID #30 cap 08/06/18 [Rx] Past Medical History MAGNET[employer] T[employer] W[employer]ER History: Reports: Dermatologic History: Reports: Eczema - Past Surgical History Musculoskeletal Surgical History: Reports: Other (See Below) Other Musculoskeletal Surgeries/Procedures:: wrist surgery 2012 Social & Family History - Family History Family Medical History: Noncontributory - Tobacco Use Smoking Status *Q: Never Smoker - Living Situation & Occupation Living situation: Reports: Single, with Significant Other Occupation: Employed ED ROS GENERAL - Review of Systems Review Of Systems: See Below Constitutional: Denies: Fever, Chills HEENT: Reports: No Symptoms Respiratory: Reports: No Symptoms Cardiovascular: Reports: No Symptoms Endocrine: Reports: No Symptoms GI/Abdominal: Reports: No Symptoms : Reports: Discharge (briseno discharge), Dysuria, Other (?vaginal tear) Musculoskeletal: Reports: No Symptoms Skin: Reports: No Symptoms Neurological: Reports: No Symptoms Psychiatric: Reports: No Symptoms ED EXAM, RENAL/ - Physical Exam Exam: See Below Exam Limited By: No Limitations General Appearance: Alert, WD/WN, No Apparent Distress Respiratory/Chest: No Respiratory Distress, Lungs Clear, Normal Breath Sounds, No Accessory Muscle Use, Chest Non-Tender Cardiovascular: Normal Peripheral Pulses, Regular Rate, Rhythm, No Murmur GI/Abdominal: Normal Bowel Sounds, Soft, Non-Tender, No Distention, No Mass (Female) Exam: Vaginal Discharge. No: Vaginal Lesions, Vaginal Tears Extremities: Normal Inspection, Normal Capillary Refill Neurological: Alert, Oriented, Normal Cognition, No Motor/Sensory Deficits Psychiatric: Normal Affect, Normal Mood Skin Exam: Warm, Dry, Intact, Normal Color, No Rash Course - Vital Signs Last Recorded V/S: Last Vital Signs Temp 97.6 F 08/06/18 19:12 Pulse 69 08/06/18 19:12 Resp 16 08/06/18 19:12 BP 112/64 08/06/18 19:12 Pulse Ox 99 08/06/18 19:12 - Orders/Labs/Meds Orders: Active Orders 24 hr Category Date Time Status CULTURE GENITAL [RM] Stat Lab 08/06/18 21:32 Ordered CULTURE URINE [RM] Stat Lab 08/06/18 21:32 Ordered Labs: Laboratory Tests 08/06/18 Range/Units 20:15 Urine Color Yellow (Yellow) Urine Appearance Cloudy H (Clear) Urine pH 6.0 (5.0-8.0) Ur Specific [place] > or = 1.030 (1.005-1.030) Urine Protein 2+ H (Negative) Urine Glucose (UA) Negative (Negative) Urine Ketones Negative (Negative) Urine Occult Blood 3+ H (Negative) Urine Nitrite Negative (Negative) Urine Bilirubin Negative (Negative) Urine Urobilinogen 0.2 (0.2-1.0) Ur Leukocyte Esterase 2+ H (Negative) Urine RBC 40-50 H (0-5) /hpf Urine WBC 50-75 H (0-5) /hpf Ur Epithelial Cells 0-5 (0-5) /hpf Urine Bacteria Few (FEW) /hpf Urine Mucus Many H (FEW) /hpf Meds: Medications Discontinued Medications Generic Name Dose Route Start Last Admin Trade Name Freq PRN Reason Stop Dose Admin Ceftriaxone Sodium 1 gm/ 0 gm 08/06/18 21:34 Lidocaine HCl 2.1 ml IM 08/06/18 21:35 ONETIME ONE Hydromorphone HCl 0.5 mg 08/06/18 20:10 08/06/18 20:42 Dilaudid IM 08/06/18 20:11 0.5 mg ONETIME ONE Administration Lidocaine HCl 10 ml 08/06/18 20:25 08/06/18 20:45 Xylocaine 2% Jelly MUCMEM 08/06/18 20:26 10 ml ONETIME ONE Administration - Re-Assessments/Exams Free Text/Narrative Re-Assessment/Exam: 08/06/18 20:19 Patient is a 18-year-old female who presents to the ED for evaluation of vaginal pain. Patria MCWILLIAMS was present for a vaginal exam, and the patient was quite tender to even minimal palpation. I was able to appreciate some briseno colored discharge, we did obtain a swab and have ordered a wet prep, and a UA for further evaluation. I did order 0.5 mg Dilaudid for pain management, and will need to reexamine once her pain is under more control. The patient was very guarded during initial exam, however there does not appear to be any sign of a vaginal tear at the episiotomy site at the initial exam. 08/06/18 21:44 Patient's UA is back and is positive for a UTI at this time, I was able to be examined the patient with a Urojet for local numbing. There was an area at 7: 00 on her vagina that appeared to expect be expressing some white purulent material. I did discuss this with Dr. Kirkpatrick, and he recommended grabbing another culture of that area, and Rocephin 1 g IM tonight, with Keflex 500mg 4 times a day and follow-up with OB on Wednesday. Departure - Departure Time of Disposition: 21:45 Disposition: Home, Self-Care 01 Condition: Fair Clinical Impression: Vaginal infection UTI (urinary tract infection) Qualifiers: Urinary tract infection type: acute cystitis Hematuria presence: with hematuria Qualified Code(s): N30.01 - Acute cystitis with hematuria - Discharge Information *PRESCRIPTION DRUG MONITORING PROGRAM REVIEWED*: No *COPY OF PRESCRIPTION DRUG MONITORING REPORT IN PATIENT ALBERTO: No Prescriptions: cephALEXin [Keflex] 500 mg PO QID #30 cap Instructions: Urinary Tract Infection, Adult, [id number] Referrals: Carmen Castellon MD [Primary Care Provider] - Forms: ED Department Discharge Additional Instructions: You have been evaluated in the ED today for your vaginal pain. You have been diagnosed with a UTI, and a vaginal infection. There was an area in your vagina that did express some purulent material. You have been given an injection of Rocephin in the ED tonight, and a prescription for cephalexin 500 mg QID. Please follow up with your OB, Dr. Castellon on Wednesday. Your urine has been sent for culture and there has also been a culture sent for the vaginal infection. You will be notified of the results. You may take Tylenol or ibuprofen every 6 hours for pain. However when the antibiotics take effect your pain should lessen. Please return to the ER if your symptoms should change or worsen. - My Orders Last 24 Hours: My Active Orders 08/06/18 21:32 CULTURE GENITAL [RM] Stat CULTURE URINE [RM] Stat - Assessment/Plan Last 24 Hours: My Active Orders 08/06/18 21:32 CULTURE GENITAL [RM] Stat CULTURE URINE [RM] Stat
[2018-08-06] MEDS ORDERED: Lidocaine 2% Jelly 10 ML Urojet MUCMEM ONE (20:25)
[2018-08-06] MEDS ORDERED: cefTRIAXone 1 GM, Lidocaine 1% 2.1 ML IM ONE ×2 (21:34)
== END 2018-08-06 22:00 | disposition home or self-care (01) ==
LOC: JD.ED 18:24
DX: O86.22 Infection of bladder following delivery (principal); O86.13 Vaginitis following delivery
CPT/HCPCS: 81001; 87070; 87086; 87210; 87808; 96372; 99283; J0696; J1170; J2001

== ENCOUNTER 2023-03-30 07:13 | Inpatient (IN) | payer BC, MEDICAID ==
[2023-03-30] MEDS ORDERED: Lidocaine 1% 50 ML MDV INJECT PRN (07:20)
[2023-03-30] MEDS ORDERED: Sodium Chloride 0.9% 10 ML Syringe FLUSH PRN (07:20)
[2023-03-30] MEDS ORDERED: Nalbuphine HCl 10 MG/ 1ML Amp IVPUSH PRN (07:20)
[2023-03-30] MEDS ORDERED: Acetaminophen 325 MG Tab PO PRN ×2 (07:20→13:22)
[2023-03-30] MEDS ORDERED: Misoprostol 25 MCG (1/4 of 100 MCG) Tab VAG PRN (07:20)
[2023-03-30] MEDS ORDERED: Lactated Ringers 1,000 ML IV SCH (07:30)
[2023-03-30 07:56] LABS: BASOPHILS ABSOLUTE AUTO 0.1 K/mm3 (0.0-0.2); BASOPHILS PERCENT AUTO 0.4 % (0.0-1.0); EOSINOPHILS ABSOLUTE AUTO 0.1 K/mm3 (0.0-0.4); EOSINOPHILS PERCENT AUTO 0.9 % (0.0-6.0); HEMATOCRIT 35.6 % (37.0-47.0); HEMOGLOBIN 11.8 gm/dl (12.0-16.0); IMMATURE GRAN ABSOLUTE AUTO 0.07 K/mm3 (0.00-0.05); IMMATURE GRAN PERCENT AUTO 0.6 % (0.0-0.4); LYMPHOCYTES ABSOLUTE AUTO 2.4 K/mm3 (1.0-4.8); LYMPHOCYTES PERCENT AUTO 18.7 % (24.0-44.0); MEAN CORPUSCULAR HEMOGLOBIN 28.8 pg (28.0-32.0); MEAN CORPUSCULAR HGB CONC 33.1 g/dl (32.0-36.0); MEAN PLATELET VOLUME 10.5 fl (9.4-12.3); MONOCYTES ABSOLUTE AUTO 1.1 K/mm3 (0.0-0.8); MONOCYTES PERCENT AUTO 8.9 % (0.0-8.0); NEUTROPHILS ABSOLUTE AUTO 8.9 K/mm3 (1.8-7.7); NEUTROPHILS PERCENT AUTO 70.5 % (41.0-71.0); PLATELET COUNT,PLT 271 K/mm3 (150-400); WHITE BLOOD CELL COUNT,WBC 12.59 K/mm3 (3.9-11.3)
[2023-03-30 07:57] LABS: MEAN CORPUSCULAR VOLUME 86.8 fl (83.0-99.0)
[2023-03-30] MEDS: Sodium Chloride 0.9% 10 ML Syringe FLUSH SCH (10:13)
[2023-03-30] MEDS: Oxytocin/Lactated Ringers 30 UNIT/500 ML BAG IV SCH (12:38)
[2023-03-30] MEDS ORDERED: Hydrocortisone Acetate 25 MG Supp RECTAL PRN (13:22)
[2023-03-30] MEDS ORDERED: Docusate Sodium 100 MG Cap PO PRN (13:22)
[2023-03-30] MEDS ORDERED: Oxytocin/Lactated Ringers 30 UNIT/500 ML BAG IV SCH (13:22)
[2023-03-30] MEDS: Witch Hazel Medicated Pads 40/Jar TOP PRN (13:27)
[2023-03-30] MEDS: Ibuprofen 600 MG Tab PO PRN (13:35)
[2023-03-30] MEDS ORDERED: Magnesium Hydroxide 400 MG/5 ML Susp 30 ML Cup PO PRN (21:00)
[2023-03-31] MEDS: Prenatal Multivitamin with Calcium/Folic Acid/Iron Tab PO SCH (08:47)
== END 2023-03-31 15:00 | disposition home or self-care (01) | DRG 560 ==
LOC: JD.OB 07:13 → OBSVTOIN 12:36 → JD.OB 12:37
PROVIDERS: ADMIT Obstetrics & Gynecology; ATTEND Obstetrics & Gynecology
PROC: 10E0XZZ Delivery of Products of Conception, External Approach (ICD-10-PCS; principal; 2023-03-30)
PROC: 10907ZC Drainage of Amniotic Fluid, Therapeutic from Products of Conception, Via Natural or Artificial Opening (ICD-10-PCS; 2023-03-30)
DX: O70.0 First degree perineal laceration during delivery (principal); Z37.0 Single live birth; Z3A.40 40 weeks gestation of pregnancy; Z86.16 Personal history of COVID-19; Z88.1 Allergy status to other antibiotic agents
CPT/HCPCS: 36415; 59025; 59409; 85025; 86592; A9270-GY; J7999